=== PATIENT | female | born 2000 | race Caucasian/White ===

== ENCOUNTER → 2020-03-26 11:30 | Outpatient (BNVA) | payer OTHER, BC, MEDICAID, SELFPAY | PROVIDERS: Family Provider Nurse Practitioner; PCP Nurse Practitioner; Visit Provider Nurse Practitioner Women's Health | DX: N91.5 Oligomenorrhea, unspecified (principal); E66.01 Morbid (severe) obesity due to excess calories | CPT/HCPCS: 84146; 84402; 84443; 84702 ==

== ENCOUNTER → 2020-04-03 11:00 | Outpatient (BNVA) | payer OTHER, BC, MEDICAID, SELFPAY | PROVIDERS: Family Provider Nurse Practitioner; PCP Nurse Practitioner; Visit Provider Nurse Practitioner Women's Health | DX: N85.8 Other specified noninflammatory disorders of uterus (principal) | CPT/HCPCS: 76830 ==